=== PATIENT | male | born 1945 | race Caucasian/White ===

== ENCOUNTER → 2018-08-21 11:37 | Outpatient (CLI) | payer MEDICARE, SELFPAY ==
[2018-08-21 12:09] LABS: Add Manual Diff / Slide Review NO; Basophils Absolute Auto 0 /uL (0-100); Basophils Percent Auto 0.5 % (0-2); Eosinophils Absolute Auto 0 /uL (0-450); Eosinophils Percent Auto 0.5 % (2-4); Hemoglobin 14.4 g/dL (13.5-17.5); Lymphocytes Absolute Auto 1300 /uL (1100-4500); Lymphocytes Percent Auto 26.3 % (25-40); Mean Corpuscular HGB Conc 34.3 % (30-36); Mean Corpuscular Hemoglobin 33.5 PG (26-34); Mean Corpuscular Volume 97.8 fL (80-100); Monocytes Absolute Auto 400 /uL (0-900); Monocytes Percent Auto 7.6 % (3-14); Neutrophils Absolute Auto 3300 /uL (1500-7000); Neutrophils Percent Auto 65.1 % (50-75); Platelet Count 285 X10^3/uL (150-400); Red Blood Cell Count 4.29 X10^6/uL (4.5-5.9); Red Cell Distribution Width 12.9 % (11.6-14.8); White Blood Cell Count 5.1 X10^3/uL (4.5-11.0)
[2018-08-21 12:20] LABS: Alanine Aminotransferase 27 IU/L (21-72); Albumin 4.6 g/dL (3.5-5.0); Albumin Globulin Ratio 1.9 (1.0-2.8); Alkaline Phosphatase 63 U/L (38-126); Aspartate Aminotransferase 37 IU/L (17-59); BUN Creatinine Ratio 15.7 (6-22); Bilirubin Total 0.6 mg/dL (0.2-1.3); Blood Urea Nitrogen 11 mg/dL (9-20); Carbon Dioxide 28 mmol/L (22-32); Chloride 102 mmol/L (98-107); Cholesterol 198 mg/dL (140-199); Estimated Glomerular Filt Rate > 60.0 mL/min (>60); Globulin 2.4 g/dL (1.7-4.1); Glucose 96 mg/dL (80-110); HEMOLYSIS < 15 (0-50); Potassium 4.2 mmol/L (3.4-5.1); Sodium 138 mmol/L (137-145); Triglycerides 50 mg/dL (35-150)
[2018-08-21 12:27] LABS: LDL Cholesterol Calculated 53 mg/dL (<100)
[2018-08-21 12:28] LABS: HDL Cholesterol 135 mg/dL (40-60)
[2018-08-21 12:50] LABS: Prostate Specific Antigen Scrn 0.305 ng/mL (0.1-4.0)
[2018-08-21 14:05] LABS: Free T3, Triiodothyronine Free 3.82 pg/mL (2.77-5.27); Free T4, Direct Thyroxine 0.66 ng/dL (0.78-2.19)
== END ==
PROVIDERS: PCP Internal Medicine; Visit Provider Internal Medicine
DX: Z00.00 Encounter for general adult medical examination without abnormal findings (principal); E03.9 Hypothyroidism, unspecified; M15.0 Primary generalized (osteo)arthritis; E29.1 Testicular hypofunction; R53.82 Chronic fatigue, unspecified; Z12.5 Encounter for screening for malignant neoplasm of prostate
CPT/HCPCS: 36415; 80053; 80061; 84403; 84439; 84443; 84481; 85025; G0103

== ENCOUNTER → 2018-08-24 13:33 | Outpatient (CLI) | payer MEDICARE, SELFPAY ==
--- NOTE | 2018-08-24 | DI.US.S_ITS ---
PROCEDURE: US ABD AORTA ANEURYSM SCREEN INDICATIONS: AAA SCREENING TECHNIQUE: Real time scanning was performed of the aorta and iliac arteries, with image documentation. COMPARISON: None. FINDINGS: Aorta: Proximal aortic diameter measures 2.8 cm. Mid-aorta measures 2.2 cm. Distal aortic diameter is 2 cm. Iliac arteries: Right common iliac artery measures 1.2 cm. Left common iliac artery measures 1.3 cm. IMPRESSION: Negative for aneurysm. Dictated by: Renzo Molina M.D. on 08/24/2018 at 13:12 Approved by: Renzo Molina M.D. on 08/24/2018 at 13:12
== END ==
PROVIDERS: PCP Internal Medicine; Visit Provider Internal Medicine
DX: Z13.6 Encounter for screening for cardiovascular disorders (principal)
CPT/HCPCS: 76706

== ENCOUNTER 2019-02-16 11:11 | Emergency (ER) | payer MEDICARE, SELFPAY ==
[2019-02-16 11:28] VITALS: BP 127/72; PULSE 67; RESP 14; TEMP 37.1; O2SAT 100
--- NOTE | 2019-02-16 11:32 | DI.RAD.S_ITS ---
PROCEDURE: XR CHEST 1V INDICATIONS: chest pain TECHNIQUE: One view of the chest was acquired. COMPARISON: None. FINDINGS: Surgical changes and devices: None. Lungs and pleura: Lungs are clear. No pleural effusions or pneumothorax. Mediastinum: Mediastinal contours appear normal. Heart size is normal. Bones and chest wall: No suspicious bony lesions. Overlying soft tissues appear unremarkable. IMPRESSION: No acute cardiopulmonary findings. Dictated by: Kaya Cao M.D. on 02/16/2019 at 11:31 Approved by: Kaya Cao M.D. on 02/16/2019 at 11:31
--- NOTE | 2019-02-16 11:38 | ED.CHESTPAIN ---
HPI - Chest Pain General Chief Complaint: Chest Pain Stated Complaint: CHEST PAIN Time Seen by Provider: 02/16/19 11:22 Source: patient Mode of arrival: ambulatory Limitations: no limitations History of Present Illness HPI narrative: Patient is a 73-year-old male with no known coronary artery disease presenting with left-sided chest pain ongoing for 2 days. 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 He feels like he may have strained something. It hurts when he takes a deep breath or moves. It is nonradiating it stays in 1 point. He did not take any medications prior to arrival to help with his pain. He denies any shortness of breath or dyspnea with exertion. No heart palpitations MD complaint: chest pain Onset (ago): day(s) (2) Pain location: left chest Quality: sharp Pain radiation: none Relieving factors: remaining still Exacerbating factors: movement Related Data Home Medications Medication Instructions Recorded Confirmed thyroid (pork) [Nature-Throid] 81.25 mg PO Q DAY #0 05/16/16 Review of Systems Review of Systems GENERAL: Denies chills, fatigue, malaise, fever, sweats, travel HEENT: Denies sinus pain, ear pain, sore throat, difficulty swallowing, neck pain RESPIRATORY: Denies dyspnea, cough, wheezing, hemoptysis, sputum. CARDIOVASCULAR: See HPI GASTROINTESTINAL: Denies nausea, vomiting, abdominal pain, diarrhea, constipation, melena. : Denies dysuria, frequency, incontinence, hematuria, urinary retention, flank pain. MUSCULOSKELETAL: Denies weakness, joint pain, or bony pain SKIN: No rash, no erythema, no pruritus NEUROLOGIC: Denies weakness, dizziness, headache, numbness, change in speech, confusion PSYCHIATRIC: No concerning psychosocial issues. 12 point review of systems is negative except for those stated above and HPI [facility] Medical History Hypothyroid (Acute) Social History (Updated 02/16/19 @ 11:41 by Lauren Gandhi DO) alcohol intake: never substance use type: does not use Social History alcohol intake: never substance use type: does not use Exam Initial Vital Signs Initial Vital Signs: Vital Signs Temperature 98.7 F 02/16/19 11:28 Pulse Rate 67 02/16/19 11:28 Respiratory Rate 14 02/16/19 11:28 Blood Pressure 127/72 02/16/19 11:28 Pulse Oximetry 100 02/16/19 11:28 GENERAL: Pleasant alert well-appearing male and in no acute distress. HEENT: Head atraumatic,EOMI, pupils reactive, face symmetric, CARDIOVASCULAR: Regular rate and rhythm without murmurs, rubs or gallops. Pain is reproducible over left breast area right near the nipple at rib 4. RESPIRATORY: Breath sounds equal bilaterally, no wheezes rales or rhonchi. ABDOMEN: Soft, nontender. Normoactive bowel sounds all 4 quadrants. No guarding or rebound. EXTREMITIES: Normal range of motion, no clubbing or edema. Neurovascularly intact NEUROLOGICAL: Alert and oriented x4.Normal gait and speech. Cranial nerves II through XII grossly intact. SKIN: Warm, dry, no laceration, no petechiae, no rashes or lesions. Scores HEART Score Heart Score history: Slightly Suspicious Heart Score EKG: Normal Heart Score Age: > or = 65 years old Heart Score risk factors: No known risk factors Heart Score troponin: < or = to normal limit Heart Score Total: 2 Course Orders Ordered: ED Orders 02/16/19 11:32 XR chest 1V Stat EKG-12 Lead Stat 02/16/19 11:45 Complete Blood Count AUTO DIFF Stat Comprehensive Metabolic Panel Stat Lipase Stat Troponin & CK Cardiac Panel Stat Vital Signs - 8 hr 02/16/19 11:28 02/16/19 12:00 02/16/19 12:30 Temperature 98.7 F Pulse Rate 67 63 61 Respiratory Rate 14 16 10 L Blood Pressure 127/72 Blood Pressure [Left Arm] 119/70 126/79 Pulse Oximetry 100 100 100 02/16/19 13:00 02/16/19 13:12 Temperature Pulse Rate 59 L 59 L Respiratory Rate 14 14 Blood Pressure 139/81 Blood Pressure [Left Arm] 139/81 Pulse Oximetry 99 99 MDM - Chest Pain Lab Data Attestation: I reviewed the patient's lab results. Result diagrams: 02/16/19 11:45 02/16/19 11:45 Lab Results 02/16/19 02/16/19 Range/Units 11:45 11:45 WBC 7.2 (4.5-11.0) X10^3/uL RBC 4.30 L (4.5-5.9) X10^6/uL Hgb 14.2 (13.5-17.5) g/dL Hct 40.9 L (41-53) % MCV 95.0 (80-100) fL MCH 33.0 (26-34) PG MCHC 34.7 (30-36) % RDW 14.2 (11.6-14.8) % Plt Count 240 (150-400) X10^3/uL Neut % (Auto) 75.1 H (50-75) % Lymph % (Auto) 15.6 L (25-40) % [place] % (Auto) 8.2 (3-14) % Eos % (Auto) 0.8 L (2-4) % Baso % (Auto) 0.3 (0-2) % Neut # (Auto) 5400 (4075-2315) /uL Lymph # (Auto) 1100 (1837-2934) /uL [place] # (Auto) 600 (0-900) /uL Eos # (Auto) 100 (0-450) /uL Baso # (Auto) 0 (0-100) /uL Sodium 137 (137-145) mmol/L Potassium 4.5 (3.4-5.1) mmol/L Chloride 104 (98-107) mmol/L Carbon Dioxide 27 (22-32) mmol/L BUN 11 (9-20) mg/dL Creatinine 0.60 L (0.66-1.25) mg/dL Estimated GFR > 60.0 (>60) mL/min BUN/Creatinine Ratio 18.3 (6-22) Glucose 93 (80-110) mg/dL Calcium 9.0 (8.4-10.2) mg/dL Total Bilirubin 0.8 (0.2-1.3) mg/dL AST 30 (17-59) IU/L ALT 23 (21-72) IU/L Alkaline Phosphatase 70 (38-126) U/L Total Creatine Kinase 84 (55-170) U/L CK-MB (CK-2) TNP CK-MB (CK-2) Rel Index TNP Troponin I < 0.012 (0.01-0.034) ng/mL Total Protein 6.4 (6.3-8.2) g/dL Albumin 4.1 (3.5-5.0) g/dL Globulin 2.3 (1.7-4.1) g/dL Albumin/Globulin Ratio 1.8 (1.0-2.8) Lipase 130 (23-300) U/L Urine Dip Bedside Urine Glucose Negative Bedside Urine Bilirubin - Negative Bedside Urine Ketone - Negative Urine Specific [place] 1.015 Bedside Urine Occult Blood - Negative Bedside Urine pH 6 Bedside Urine Protein - Negative Bedside Urine Urobilinogen - Negative Bedside Urine Nitrite - Negative Bedside Urine Leukocytes - Negative Esterase Imaging Data Chest x-ray: Radiologist's impression: PROCEDURE: XR CHEST 1V INDICATIONS: chest pain TECHNIQUE: One view of the chest was acquired. COMPARISON: None. FINDINGS: Surgical changes and devices: None. Lungs and pleura: Lungs are clear. No pleural effusions or pneumothorax. Mediastinum: Mediastinal contours appear normal. Heart size is normal. Bones and chest wall: No suspicious bony lesions. Overlying soft tissues appear unremarkable. IMPRESSION: No acute cardiopulmonary findings. Dictated by: Kaya Cao M.D. on 02/16/2019 at 11:31 ECG Data Attestation: I personally reviewed and interpreted this ECG as follows: Prior ECG tracings: not available for review Interpretation: Sinus rhythm rate 62 year interval [address] changes or T-wave inversions MDM Narrative Medical decision making narrative: Pain is reproducible worse with movement and is consistent with musculoskeletal pain. He has no known risk factors for coronary artery disease. Troponin EKG x-ray are negative. Discussed with him he still may need further cardiac evaluation with his primary care physician. He understands and agrees and no return to ED if it is getting worse. Discharge Plan Departure Patient Disposition: Home Clinical Impression: Acute costochondritis, Atypical chest pain Discharge Date/Time: 02/16/19 13:13 Interventions: ED Discharge Assessment Last Done: 02/16/19 13:12 Instructions: Costochondritis, DI for Atypical Chest Pain Activity Restrictions/Additional Instructions: *You have been diagnosed with costochondritis, atypical chest *What to do: At this time based on your symptoms I believe this to be musculoskeletal pain rather than cardiac pain. However you may still require further cardiac evaluation with her PCP. However it is not indicated that he stay in the hospital to do so. *Continue to take medications as directed *Follow up with your primary care provider in 2-3 days *Return to ER if you should have increasing pain, shortness of breath, or any new, worsening or concerning symptoms Prescriptions: No Action thyroid (pork) [Nature-Throid] 81.25 MG tablet 81.25 mg PO Q DAY Qty: 0 RF: 0 Referrals: Tyler Christopher MD [Primary Care Provider] -
[2019-02-16 11:55] LABS: Add Manual Diff / Slide Review NO; Basophils Absolute Auto 0 /uL (0-100); Basophils Percent Auto 0.3 % (0-2); Eosinophils Absolute Auto 100 /uL (0-450); Eosinophils Percent Auto 0.8 % (2-4); Hematocrit 40.9 % (41-53); Hemoglobin 14.2 g/dL (13.5-17.5); Lymphocytes Absolute Auto 1100 /uL (1100-4500); Lymphocytes Percent Auto 15.6 % (25-40); Mean Corpuscular HGB Conc 34.7 % (30-36); Monocytes Absolute Auto 600 /uL (0-900); Monocytes Percent Auto 8.2 % (3-14); Neutrophils Absolute Auto 5400 /uL (1500-7000); Neutrophils Percent Auto 75.1 % (50-75); Platelet Count 240 X10^3/uL (150-400); Red Cell Distribution Width 14.2 % (11.6-14.8); White Blood Cell Count 7.2 X10^3/uL (4.5-11.0)
[2019-02-16 12:00] VITALS: BP 119/70; PULSE 63; RESP 16; O2SAT 100
[2019-02-16 12:03] LABS: Alanine Aminotransferase 23 IU/L (21-72); Albumin 4.1 g/dL (3.5-5.0); Albumin Globulin Ratio 1.8 (1.0-2.8); Alkaline Phosphatase 70 U/L (38-126); Aspartate Aminotransferase 30 IU/L (17-59); BUN Creatinine Ratio 18.3 (6-22); Bilirubin Total 0.8 mg/dL (0.2-1.3); Blood Urea Nitrogen 11 mg/dL (9-20); Carbon Dioxide 27 mmol/L (22-32); Chloride 104 mmol/L (98-107); Creatine Kinase 84 U/L (55-170); Estimated Glomerular Filt Rate > 60.0 mL/min (>60); Globulin 2.3 g/dL (1.7-4.1); Glucose 93 mg/dL (80-110); HEMOLYSIS < 15 (0-50); Lipase 130 U/L (23-300); Potassium 4.5 mmol/L (3.4-5.1); Sodium 137 mmol/L (137-145); Total Protein 6.4 g/dL (6.3-8.2)
[2019-02-16 12:14] LABS: Troponin I < 0.012 ng/mL (0.01-0.034)
[2019-02-16 12:30] VITALS: BP 126/79; PULSE 61; RESP 10; O2SAT 100
[2019-02-16 13:00] VITALS: BP 139/81; PULSE 59; RESP 14; O2SAT 99
[2019-02-16 13:12] VITALS: BP 139/81; PULSE 59; RESP 14; O2SAT 99
== END 2019-02-16 13:13 | disposition home or self-care (01) ==
PROVIDERS: Emergency Provider Emergency Medicine; PCP Internal Medicine
DX: M94.0 Chondrocostal junction syndrome [Tietze] (principal); R07.89 Other chest pain
CPT/HCPCS: 36415; 71045; 80053; 81003; 82550; 83690; 84484; 85025; 93005; 99283; 99285

== ENCOUNTER → 2019-03-07 07:26 | Outpatient (CLI) | payer MEDICARE, SELFPAY ==
[2019-03-07 08:55] LABS: Free T3, Triiodothyronine Free 4.36 pg/mL (2.77-5.27)
[2019-03-07 09:09] LABS: Thyroid Stimulating Hormone 4.63 uIU/mL (0.47-4.68)
== END ==
PROVIDERS: PCP Internal Medicine; Visit Provider Internal Medicine
DX: E03.9 Hypothyroidism, unspecified (principal)
CPT/HCPCS: 36415; 84439; 84443; 84481

== ENCOUNTER → 2019-05-16 07:34 | Outpatient (CLI) | payer MEDICARE, SELFPAY ==
[2019-05-16 09:24] LABS: Free T3, Triiodothyronine Free 4.37 pg/mL (2.77-5.27); Free T4, Direct Thyroxine 1.08 ng/dL (0.78-2.19)
[2019-05-16 09:37] LABS: Thyroid Stimulating Hormone 2.73 uIU/mL (0.47-4.68)
== END ==
PROVIDERS: PCP Internal Medicine; Visit Provider Internal Medicine
DX: E03.9 Hypothyroidism, unspecified (principal)
CPT/HCPCS: 36415; 84439; 84443; 84481

== ENCOUNTER → 2019-06-07 09:45 | Outpatient (CLI) | payer MEDICARE, SELFPAY ==
[2019-06-07 12:04] LABS: Clostridium Difficile Tox PCR Negative for C. diff
== END ==
PROVIDERS: PCP Internal Medicine; Visit Provider Student in an Organized Health Care Education/Training Program
DX: R19.7 Diarrhea, unspecified (principal)
CPT/HCPCS: 87045; 87046; 87077; 87177; 87186; 87329; 87493; 87899

== ENCOUNTER → 2019-09-18 09:16 | Outpatient (CLI) | payer MEDICARE, SELFPAY ==
[2019-09-18 12:06] LABS: Free T3, Triiodothyronine Free 3.71 pg/mL (2.77-5.27); Free T4, Direct Thyroxine 1.03 ng/dL (0.78-2.19)
[2019-09-18 12:20] LABS: Thyroid Stimulating Hormone 2.75 uIU/mL (0.47-4.68)
== END ==
PROVIDERS: PCP Internal Medicine; Referring Provider Internal Medicine; Visit Provider Internal Medicine
DX: E03.9 Hypothyroidism, unspecified (principal)
CPT/HCPCS: 36415; 84439; 84443; 84481

== ENCOUNTER → 2020-03-16 07:54 | Outpatient (CLI) | payer MEDICARE, SELFPAY ==
[2020-03-16 09:11] LABS: Free T3, Triiodothyronine Free 4.83 pg/mL (2.77-5.27)
[2020-03-16 09:25] LABS: TSH w/ Reflex to FT4 0.41 uIU/mL (0.47-4.68)
[2020-03-16 09:49] LABS: Free T4, Direct Thyroxine 1.17 ng/dL (0.78-2.19)
== END ==
PROVIDERS: PCP Internal Medicine; Referring Provider Internal Medicine; Visit Provider Internal Medicine
DX: E03.9 Hypothyroidism, unspecified (principal)
CPT/HCPCS: 36415; 84439; 84443; 84481

== ENCOUNTER → 2020-09-28 08:17 | Outpatient (CLI) | payer OTHER, SELFPAY ==
[2020-09-28 09:30] LABS: BUN Creatinine Ratio 15.4 (6-22); Blood Urea Nitrogen 10 mg/dL (9-20); Calcium 9.1 mg/dL (8.4-10.2); Carbon Dioxide 32 mmol/L (22-32); Chloride 101 mmol/L (98-107); Estimated Glomerular Filt Rate > 60.0 mL/min (>60); Glucose 104 mg/dL (80-110); HEMOLYSIS < 15 (0-50); Potassium 4.1 mmol/L (3.4-5.1); Sodium 133 mmol/L (137-145)
[2020-09-28 10:08] LABS: Free T3, Triiodothyronine Free 4.03 pg/mL (2.77-5.27)
[2020-09-28 10:22] LABS: TSH w/ Reflex to FT4 1.54 uIU/mL (0.47-4.68)
== END ==
PROVIDERS: PCP Internal Medicine; Referring Provider Internal Medicine; Visit Provider Internal Medicine
DX: E03.9 Hypothyroidism, unspecified (principal); G47.30 Sleep apnea, unspecified
CPT/HCPCS: 36415; 80048; 84443; 84481

== ENCOUNTER → 2022-10-26 08:25 | Outpatient (CLI) | payer MEDICARE, SELFPAY ==
[2022-10-26 08:59] LABS: Add Manual Diff / Slide Review NO; Basophils Absolute Auto 0 /uL (0-100); Basophils Percent Auto 0.7 % (0-2); Eosinophils Absolute Auto 100 /uL (0-450); Eosinophils Percent Auto 1.7 % (2-4); Hematocrit 40.7 % (41-53); Hemoglobin 13.9 g/dL (13.5-17.5); Lymphocytes Absolute Auto 1600 /uL (1100-4500); Lymphocytes Percent Auto 34.6 % (25-40); Mean Corpuscular HGB Conc 34.1 % (30-36); Mean Corpuscular Hemoglobin 33.2 PG (26-34); Mean Corpuscular Volume 97.4 fL (80-100); Monocytes Absolute Auto 500 /uL (0-900); Neutrophils Absolute Auto 2500 /uL (1500-7000); Platelet Count 254 X10^3/uL (150-400); Red Blood Cell Count 4.18 X10^6/uL (4.5-5.9); Red Cell Distribution Width 12.9 % (11.6-14.8); White Blood Cell Count 4.8 X10^3/uL (4.5-11.0)
[2022-10-26 09:28] LABS: Alanine Aminotransferase 35 IU/L (<50); Albumin 4.4 g/dL (3.5-5.0); Albumin Globulin Ratio 1.9 (1.0-2.8); Alkaline Phosphatase 80 U/L (38-126); Aspartate Aminotransferase 37 IU/L (17-59); BUN Creatinine Ratio 18.2 (6-22); Bilirubin Total 0.9 mg/dL (0.2-1.3); Blood Urea Nitrogen 10 mg/dL (9-20); Calcium 9.2 mg/dL (8.4-10.2); Carbon Dioxide 29 mmol/L (22-32); Chloride 95 mmol/L (98-107); Estimated Glomerular Filt Rate > 60 mL/min (>60); Globulin 2.3 g/dL (1.7-4.1); Glucose 94 mg/dL (80-110); HEMOLYSIS < 15 (0-50); Potassium 4.4 mmol/L (3.4-5.1); Sodium 132 mmol/L (137-145); Total Protein 6.7 g/dL (6.3-8.2)
[2022-10-26 09:45] LABS: Free T4, Direct Thyroxine 1.65 ng/dL (0.78-2.19)
[2022-10-26 10:01] LABS: Prostate Specific Antigen Scrn 0.534 ng/mL (0.1-4.0)
[2022-10-26 10:25] LABS: Thyroid Stimulating Hormone < 0.015 uIU/mL (0.47-4.68)
== END ==
PROVIDERS: PCP Family Medicine; Referring Provider Family Medicine; Visit Provider Family Medicine
DX: Z00.00 Encounter for general adult medical examination without abnormal findings (principal); Z12.5 Encounter for screening for malignant neoplasm of prostate
CPT/HCPCS: 36415; 80053; 84439; 84443; 85025; G0103

== ENCOUNTER → 2023-08-21 10:26 | Outpatient (CLI) | payer MEDICARE, SELFPAY ==
[2023-08-21 11:02] LABS: Add Manual Diff / Slide Review NO; Basophils Absolute Auto 0 /uL (0-100); Basophils Percent Auto 0.5 % (0-2); Eosinophils Absolute Auto 100 /uL (0-450); Eosinophils Percent Auto 1.3 % (2-4); Hematocrit 38.8 % (41-53); Hemoglobin 13.4 g/dL (13.5-17.5); Lymphocytes Absolute Auto 1700 /uL (1100-4500); Lymphocytes Percent Auto 40.7 % (25-40); Mean Corpuscular HGB Conc 34.4 % (30-36); Mean Corpuscular Volume 90.1 fL (80-100); Monocytes Absolute Auto 400 /uL (0-900); Monocytes Percent Auto 10.9 % (3-14); Neutrophils Absolute Auto 1900 /uL (1500-7000); Neutrophils Percent Auto 46.6 % (50-75); Platelet Count 244 X10^3/uL (150-400); Red Blood Cell Count 4.31 X10^6/uL (4.5-5.9); Red Cell Distribution Width 12.8 % (11.6-14.8); White Blood Cell Count 4.1 X10^3/uL (4.5-11.0)
[2023-08-21 11:36] LABS: Alanine Aminotransferase 42 IU/L (<50); Albumin 3.9 g/dL (3.5-5.0); Albumin Globulin Ratio 1.7 (1.0-2.8); Alkaline Phosphatase 73 U/L (38-126); Aspartate Aminotransferase 37 IU/L (17-59); BUN Creatinine Ratio 25.5 (6-22); Bilirubin Total 0.7 mg/dL (0.2-1.3); Blood Urea Nitrogen 14 mg/dL (9-20); Calcium 9.5 mg/dL (8.4-10.2); Carbon Dioxide 29 mmol/L (22-32); Chloride 104 mmol/L (98-107); Estimated Glomerular Filt Rate > 60 mL/min (>60); Globulin 2.3 g/dL (1.7-4.1); Glucose 100 mg/dL (80-110); HEMOLYSIS < 15 (0-50); Potassium 4.4 mmol/L (3.4-5.1); Sodium 136 mmol/L (137-145); Total Protein 6.2 g/dL (6.3-8.2)
[2023-08-21 11:53] LABS: Free T4, Direct Thyroxine 1.45 ng/dL (0.78-2.19)
[2023-08-21 12:10] LABS: Thyroid Stimulating Hormone < 0.015 uIU/mL (0.47-4.68)
== END ==
PROVIDERS: PCP Family Medicine; Referring Provider Family Medicine; Visit Provider Family Medicine
DX: Z00.00 Encounter for general adult medical examination without abnormal findings (principal); E03.9 Hypothyroidism, unspecified; G47.33 Obstructive sleep apnea (adult) (pediatric)
CPT/HCPCS: 36415; 80053; 84439; 84443; 85025

== ENCOUNTER → 2024-09-09 11:39 | Outpatient (CLI) | payer MEDICARE, SELFPAY ==
[2024-09-09 12:26] LABS: Add Manual Diff / Slide Review NO; Basophils Absolute Auto 0 /uL (0-100); Basophils Percent Auto 0.8 % (0-2); Eosinophils Absolute Auto 100 /uL (0-450); Eosinophils Percent Auto 1.5 % (2-4); Hematocrit 40.8 % (41-53); Hemoglobin 14.1 g/dL (13.5-17.5); Lymphocytes Absolute Auto 1800 /uL (1100-4500); Lymphocytes Percent Auto 41.1 % (25-40); Mean Corpuscular HGB Conc 34.6 % (30-36); Mean Corpuscular Hemoglobin 31.5 PG (26-34); Mean Corpuscular Volume 91.2 fL (80-100); Monocytes Absolute Auto 400 /uL (0-900); Monocytes Percent Auto 9.2 % (3-14); Neutrophils Absolute Auto 2100 /uL (1500-7000); Neutrophils Percent Auto 47.4 % (50-75); Platelet Count 258 X10^3/uL (150-400); Red Blood Cell Count 4.47 X10^6/uL (4.5-5.9); White Blood Cell Count 4.3 X10^3/uL (4.5-11.0)
[2024-09-09 12:52] LABS: Alanine Aminotransferase 30 IU/L (<50); Albumin 4.6 g/dL (3.5-5.0); Albumin Globulin Ratio 2.3 (1.0-2.8); Alkaline Phosphatase 61 U/L (38-126); Aspartate Aminotransferase 31 IU/L (17-59); BUN Creatinine Ratio 19.4 (6-22); Bilirubin Total 0.8 mg/dL (0.2-1.3); Blood Urea Nitrogen 13 mg/dL (9-20); Calcium 9.6 mg/dL (8.4-10.2); Carbon Dioxide 25 mmol/L (22-32); Chloride 102 mmol/L (98-107); Estimated Glomerular Filt Rate > 60 mL/min (>60); Glucose 96 mg/dL (80-110); HEMOLYSIS < 15 (0-50); Potassium 4.6 mmol/L (3.4-5.1); Sodium 136 mmol/L (137-145); Total Protein 6.6 g/dL (6.3-8.2)
[2024-09-09 12:59] LABS: HEMOLYSIS < 15 (0-50); Iron 115 ug/dL (49-181)
[2024-09-09 13:14] LABS: Percent Iron Saturation 44 % (20-50); Total Iron Binding Capacity 259 ug/dL (261-462); Transferrin 236 mg/dL (206-381)
[2024-09-09 13:26] LABS: Prostate Specific Antigen Scrn 0.104 ng/mL (0.1-4.0)
[2024-09-09 13:53] LABS: Vitamin B12 614 pg/mL (239-931)
== END ==
PROVIDERS: PCP Family Medicine; Referring Provider Family Medicine; Visit Provider Family Medicine
DX: Z00.00 Encounter for general adult medical examination without abnormal findings (principal); E03.9 Hypothyroidism, unspecified; Z12.5 Encounter for screening for malignant neoplasm of prostate; N40.0 Benign prostatic hyperplasia without lower urinary tract symptoms; D64.9 Anemia, unspecified
CPT/HCPCS: 36415; 80053; 82607; 83540; 83550; 85025; G0103

== ENCOUNTER → 2024-10-02 09:38 | Outpatient (CLI) | payer MEDICARE, SELFPAY | LOC: CAR 09:39 | PROVIDERS: PCP Family Medicine; Referring Provider Family Medicine; Visit Provider Family Medicine | DX: R00.2 Palpitations (principal) | CPT/HCPCS: 93246 ==

== ENCOUNTER 2024-11-04 10:08 | Day surgery (SDC) | payer MEDICARE, SELFPAY ==
[2024-11-04 11:00] VITALS: BP 128/76; PULSE 62; RESP 16; TEMP 36.2; O2SAT 99
[2024-11-04] MEDS: LACTATED RINGERS 1,000 ML 42 ML IV (11:10)
--- NOTE | 2024-11-04 11:26 | P.HP_ITS ---
History of Present Illness History of Present Illness Date Patient Seen: 11/04/24 Chief complaint: Colonoscopy Narrative: Need for screening colonoscopy [facility] Medical History (Updated 09/23/24 @ 15:59 by Garo Barraza DO) Paroxysmal atrial fibrillation Anemia BPH (benign prostatic hyperplasia) Recurrent cold sores Medicare annual wellness visit, subsequent Well adult exam Disordered sleep Measles (~1954) Herpes (~1994) Chicken pox (~1951) Cataracts, bilateral (~2020) Obstructive sleep apnea (~1998) Squamous cell carcinoma Macular degeneration (~2021) Hypothyroid Acquired hypothyroidism (09/29/15) Surgical History Anesthesia History of broken leg (~1961) S/P LASIK surgery (~1999) History of appendectomy (~1999) History of facial surgery (~1963) History of tonsillectomy (~1960) History of adenoidectomy (~1954) Family History Father Cancer History of heart disease Hypertension Stroke Mother History of heart disease Hypertension Tic disorder Sister Multiple sclerosis Diabetes mellitus Hypertension Grandfather History of heart disease Grandmother History of heart disease Grandfather Stroke Grandmother History of heart disease Hypertension Social History Smoking Status: Former smoker alcohol intake: never substance use type: does not use Meds Home Medications and Allergies Home Medications Medication Instructions Recorded Confirmed Type ProOmega 2,000-D PO 07/29/22 09/23/24 History bevacizumab 25 mg/mL intravenous IV 07/29/22 09/23/24 History solution (Avastin) cholecalciferol (vitamin D3) 125 125 mcg PO BID 07/29/22 09/23/24 History mcg (5,000 unit) capsule (D3-5000) concentrace mineral drops PO 07/29/22 09/23/24 History iodine PO 07/29/22 09/23/24 History magnesium oil topical 07/29/22 09/23/24 History lydia resveratrol PO 07/29/22 09/23/24 History ozone irrigation .Route 07/29/22 09/23/24 History sodium borate (bulk) ea miscellaneous 07/29/22 09/23/24 History super lysine + PO 07/29/22 09/23/24 History vission essentials eye health PO 07/29/22 09/23/24 History vitamins A,C,M-ewxe-vmeqbo PO 07/29/22 09/23/24 History [PreserVision AREDS] grassfed beef liver PO DAILY 09/11/23 09/23/24 History valacyclovir 1 gram tablet 1,000 mg PO TID #9 tabs 09/11/23 09/23/24 Rx (Valtrex) finasteride 5 mg tablet 5 mg PO DAILY #90 tabs 09/09/24 11/04/24 Rx tamsulosin 0.4 mg capsule 0.4 mg PO BID #180 caps 09/09/24 11/04/24 Rx T3/T4 IR (Liothyronine See Rx Instructions PO DAILY #90 09/19/24 11/04/24 Rx IR/Levothyroxine}(15.75/120 MCG) caps sodium,potassium,mag sulfates 17.5 See Rx Instructions PO .COMPLEX 09/27/24 Rx gram-3.13 gram-1.6 gram oral soln #354 mL (Suprep Bowel Prep Kit) aspirin 81 mg tablet,delayed 81 mg PO DAILY 11/04/24 11/04/24 History release Allergies Allergy/AdvReac Type Severity Reaction Status Date / Time No Known Drug Allergies Allergy Verified 11/04/24 10:47 Exam Vital Signs (past 8 hours): - 11/04/24 11:00 Temperature 97.1 F L Pulse Rate 62 Respiratory Rate 16 Blood Pressure 128/76 Pulse Oximetry 99 Oxygen Delivery Method Room Air Oxygen Delivery Method Room Air Narrative Exam Narrative: Oropharynx free of lesions Chest clear to auscultation percussion Cardiac exam reveals no S3 or murmur Assessment & Plan Assessment & Plan narrative: Need for colorectal cancer screening. Risks, benefits, alternatives have been explained. Time-Based Coding :: [TOTAL MINUTES] spent with patient and on the chart (including review of chart, obtaining history, exam, reviewing outside data, placing orders, documenting exam and treatment plan, and counseling patient) on [DATE]. [employer] National [employer] Document charge(s): No
--- NOTE | 2024-11-04 11:27 | PM.OP.COLON ---
Operative Date/Time/Diagnoses Date of procedure: 11/04/24 Pre-op diagnosis: See indication findings Procedure & Clinicians Study performed: Colonoscopy Same procedure as scheduled: Yes Indications: Screening Surgeon: Gema Chawla Procedure Notes Procedure in detail: After informed consent was obtained the patient was placed in left lateral decubitus position. The video colonoscope was introduced the rectum slowly advanced cecum. Preparation was good. On slow withdrawal mucosa was carefully examined. The scope was removed. The patient tolerated procedure well. Blood loss none Complications none Sedation mac Findings 1. Negative colonoscopy to cecum Given patient's age and negative colonoscopy she does not need any routine follow-up
[2024-11-04 11:52] VITALS: BP 82/52; PULSE 60; RESP 16; TEMP 36.3; O2SAT 95
[2024-11-04 11:57] VITALS: BP 80/52; PULSE 60; RESP 12; O2SAT 95
[2024-11-04 12:02] VITALS: BP 93/60; PULSE 62; RESP 12; O2SAT 97
[2024-11-04 12:07] VITALS: BP 101/56; PULSE 67; RESP 16; TEMP 36.7; O2SAT 98
[2024-11-04 12:24] VITALS: BP 104/69; PULSE 61; RESP 16; TEMP 36.7; O2SAT 98
== END 2024-11-04 12:33 | disposition home or self-care (01) ==
PROVIDERS: PCP Family Medicine; Referring Provider Internal Medicine Gastroenterology; Visit Provider Internal Medicine Gastroenterology
PROC: 0DJD8ZZ Inspection of Lower Intestinal Tract, Via Natural or Artificial Opening Endoscopic (ICD-10-PCS; CPT 45378; principal; 2024-11-04 11:30)
DX: Z12.11 Encounter for screening for malignant neoplasm of colon (principal); Z87.891 Personal history of nicotine dependence
CPT/HCPCS: G0121; J2704

== ENCOUNTER → 2025-03-03 11:58 | Outpatient (CLI) | payer MEDICARE, SELFPAY ==
[2025-03-03 12:55] LABS: Add Manual Diff / Slide Review NO; Hematocrit 40.3 % (41-53); Hemoglobin 13.7 g/dL (13.5-17.5); Lymphocytes Absolute Auto 1800 /uL (1100-4500); Mean Corpuscular HGB Conc 34.1 % (30-36); Mean Corpuscular Hemoglobin 31.2 PG (26-34); Mean Corpuscular Volume 91.3 fL (80-100); Platelet Count 233 X10^3/uL (150-400)
[2025-03-03 13:06] LABS: Alanine Aminotransferase 37 IU/L (<50); Albumin 4.6 g/dL (3.5-5.0); Albumin Globulin Ratio 1.8 (1.0-2.8); Alkaline Phosphatase 79 U/L (38-126); Blood Urea Nitrogen 14 mg/dL (9-20); Calcium 9.4 mg/dL (8.4-10.2); Carbon Dioxide 25 mmol/L (22-32); Chloride 105 mmol/L (98-107); Estimated Glomerular Filt Rate > 60 mL/min (>60); Globulin 2.5 g/dL (1.7-4.1); Glucose 96 mg/dL (70-99); HEMOLYSIS < 15 (0-50); Potassium 4.3 mmol/L (3.4-5.1); Sodium 138 mmol/L (137-145); Total Protein 7.1 g/dL (6.3-8.2)
[2025-03-03 13:37] LABS: TSH w/ Reflex to FT4 < 0.02 uIU/mL (0.47-4.68)
[2025-03-03 17:35] LABS: Free T4, Direct Thyroxine 0.32 ng/dL (0.78-2.19)
== END ==
PROVIDERS: PCP Family Medicine; Referring Provider Family Medicine; Visit Provider Family Medicine
DX: D64.9 Anemia, unspecified (principal); E03.9 Hypothyroidism, unspecified; R53.83 Other fatigue
CPT/HCPCS: 36415; 80053; 84439; 84443; 85025

== ENCOUNTER → 2025-04-09 09:37 | Outpatient (CLI) | payer MEDICARE, SELFPAY ==
[2025-04-09 11:31] LABS: Vitamin D 25 Hydroxy (D3) > 126 ng/mL (30.0-100.0)
[2025-04-09 11:32] LABS: Free T3, Triiodothyronine Free 3.93 pg/mL (2.77-5.27); Free T4, Direct Thyroxine 0.94 ng/dL (0.78-2.19)
[2025-04-09 11:35] LABS: Hemoglobin A1C% w Est Avg Glu 5.1 % (4.0-6.0)
[2025-04-09 11:47] LABS: Thyroid Stimulating Hormone < 0.015 uIU/mL (0.47-4.68)
[2025-04-09 11:53] LABS: Ferritin 118 ng/mL (18-464)
[2025-04-09 12:24] LABS: Folate 14.6 ng/mL (2.76-20.0); Vitamin B12 601 pg/mL (239-931)
[2025-04-11 05:39] LABS: Insulin Level Total 7.6 uIU/mL (2.6-24.9)
[2025-04-13 17:08] LABS: Triiodothyronine T3 Reverse 21.5 ng/dL (.)
[2025-04-13 20:07] LABS: Magnesium, RBC 5.3 mg/dL (3.7-7.0)
== END ==
PROVIDERS: PCP Family Medicine; Referring Provider Allergy & Immunology; Visit Provider Family Medicine
DX: G47.01 Insomnia due to medical condition (principal); E55.9 Vitamin D deficiency, unspecified; I49.9 Cardiac arrhythmia, unspecified; H35.30 Unspecified macular degeneration; R35.1 Nocturia
CPT/HCPCS: 36415; 82306; 82607; 82627; 82728; 82746; 83036; 83090; 83525; 83735; 84403; 84439; 84443; 84481; 84482; 86140

== ENCOUNTER → 2025-05-05 09:10 | Outpatient (CLI) | payer MEDICARE, SELFPAY ==
[2025-05-05 10:46] LABS: Hematocrit 38.6 % (41-53); Hemoglobin 13.2 g/dL (13.5-17.5); Mean Corpuscular HGB Conc 34.2 % (30-36); Mean Corpuscular Hemoglobin 31.1 PG (26-34); Mean Corpuscular Volume 90.8 fL (80-100); Platelet Count 202 X10^3/uL (150-400)
[2025-05-05 11:11] LABS: Blood Urea Nitrogen 13 mg/dL (9-20); Calcium 9.3 mg/dL (8.4-10.2); Carbon Dioxide 25 mmol/L (22-32); Chloride 104 mmol/L (98-107); Estimated Glomerular Filt Rate > 60 mL/min (>60); Glucose 106 mg/dL (70-99); HEMOLYSIS < 15 (0-50); Potassium 4.9 mmol/L (3.4-5.1); Sodium 136 mmol/L (137-145)
[2025-05-05 11:22] LABS: Free T4, Direct Thyroxine 2.06 ng/dL (0.78-2.19)
[2025-05-05 11:43] LABS: Thyroid Stimulating Hormone < 0.015 uIU/mL (0.47-4.68)
== END ==
PROVIDERS: PCP Family Medicine; Referring Provider Internal Medicine; Visit Provider Internal Medicine
DX: I48.0 Paroxysmal atrial fibrillation (principal)
CPT/HCPCS: 36415; 80048; 84439; 84443; 85027

== ENCOUNTER → 2025-06-12 09:00 | Outpatient (CLI) | payer MEDICARE, SELFPAY ==
[2025-06-12 10:44] LABS: Free T3, Triiodothyronine Free 4.70 pg/mL (2.77-5.27); Free T4, Direct Thyroxine 1.94 ng/dL (0.78-2.19)
[2025-06-12 10:48] LABS: Vitamin D 25 Hydroxy (D3) 109 ng/mL (30.0-100.0)
[2025-06-12 11:00] LABS: Thyroid Stimulating Hormone < 0.015 uIU/mL (0.47-4.68)
== END ==
PROVIDERS: PCP Family Medicine; Referring Provider Allergy & Immunology; Visit Provider Allergy & Immunology
DX: G47.01 Insomnia due to medical condition (principal); E03.9 Hypothyroidism, unspecified; H35.30 Unspecified macular degeneration; I49.9 Cardiac arrhythmia, unspecified; R35.1 Nocturia
CPT/HCPCS: 36415; 82306; 82627; 83090; 83735; 84270; 84403; 84439; 84443; 84481; 84482